=== PATIENT | male | born 2000 | race Caucasian/White ===

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

== ENCOUNTER → 2021-03-01 | Outpatient (REF) | LOC: M LABSMTC 10:20 | PROVIDERS: ATTEND Pediatrics | DX: Z11.52 Encounter for screening for COVID-19 (principal) ==